=== PATIENT | female | born 1975 | race Caucasian/White ===

== ENCOUNTER 2018-06-30 20:02 | Inpatient (IN) | payer SELFPAY ==
[~2018-06-30] VITALS: Ht 162.6 cm; Wt 94.4 kg
--- NOTE | 2018-06-30 20:13 | NUR ---
PT BIB [facility] FROM [facility], C/O POSS FOREIGN BODY STUCK IN THROAT, PT AAOX4, RESPIRATIONS EVEN AND UNLABORED, NO SOB, NAD NOTED, VSS, PT ON MONITOR. PENDING ER PROVIDER MONIQUE
--- NOTE | 2018-06-30 20:56 | NUR ---
GI market intelligence consultant - Nichelle MARROQUIN - paged
[2018-06-30] MEDS ORDERED: ONDANSETRON HCL/PF 4 MG/2 ML VIAL ONE (21:15)
--- NOTE | 2018-06-30 21:18 | NUR ---
[facility] call center recruiter -paged for admission
[2018-06-30] MEDS ORDERED: GLUCAGON,HUMAN RECOMBINANT 1 MG/VIAL VIAL IV ONE (21:30)
[2018-06-30] MEDS ORDERED: ONDANSETRON HCL/PF 4 MG/2 ML VIAL IVP ONE (21:30)
[2018-06-30] MEDS ORDERED: GLUCAGON,HUMAN RECOMBINANT 1 MG/VIAL VIAL ONE (21:35)
[2018-06-30 21:36] LABS: BASOPHILS # (AUTO) 0.1 /CMM (0.0-0.2); BASOPHILS % (AUTO) 0.4 % (0.0-2.0); EOSINOPHILS % (AUTO) 4.2 % (0.0-6.0); HEMATOCRIT 36 % (33-45); HEMOGLOBIN 11.6 g/dL (11.5-14.8); LYMPHOCYTES # (AUTO) 2.6 /CMM (0.8-4.8); LYMPHOCYTES % (AUTO) 19.9 % (20.0-44.0); MEAN CORPUSCULAR HGB CONC 32 g/dl (31.0-36.0); MEAN CORPUSCULAR VOLUME 83 fL (82-100); MONOCYTES # (AUTO) 0.7 /CMM (0.1-1.30); MONOCYTES % (AUTO) 5.3 % (2.0-12.0); NEUTROPHILS # (AUTO) 9.3 /CMM (1.8-8.9); NEUTROPHILS % (AUTO) 70.2 % (43.0-81.0); PLATELET COUNT (AUTO) 432 /CMM (150-450); RED BLOOD CELL COUNT(AUTO) 4.31 MIL/uL (4.0-5.2); WHITE BLOOD COUNT (AUTO) 13.3 K/uL (4.3-11.0)
[2018-06-30] MEDS ORDERED: WATER FOR INJECTION,STERILE 10 ML ONE (21:38)
[2018-06-30 21:44] LABS: CALCIUM, SERUM 8.5 mg/dL (8.5-10.1); POTASSIUM 4.1 mmol/L (3.5-5.1)
--- NOTE | 2018-06-30 21:44 | NUR ---
TELE #: [id number], Dx: FOREIGN BODY IN UPPER GI, AND ACCEPTING: RENAN NASH NP[
--- NOTE | 2018-06-30 21:55 | NUR ---
report given to the floor nurse; continue plan of care
[2018-06-30] MEDS ORDERED: LORAZEPAM INJ 2 MG/ML VIAL IV ONE (22:00)
[2018-06-30] MEDS ORDERED: IV NS 0.9% 1,000 ML IV PRN (22:06)
[2018-06-30] MEDS ORDERED: MAGNESIUM HYDROXIDE 30 ML UDC PO PRN (22:30)
[2018-06-30] MEDS ORDERED: ONDANSETRON HCL/PF 4 MG/2 ML VIAL IVP PRN (22:30)
[2018-06-30] MEDS ORDERED: ACETAMINOPHEN 325 MG TABLET PO PRN (22:30)
[2018-06-30] MEDS ORDERED: MAG HYDROX/AL HYDROX/SIMETH 30 ML UDC PO PRN (22:30)
[2018-06-30] MEDS ORDERED: HYDROCODONE/APAP 5/325MG 1 EACH TABLET PO PRN (22:30)
[2018-06-30] MEDS ORDERED: Z GUARD REMEDY 2 OZ OINT TP PRN (22:30)
--- NOTE | 2018-06-30 22:30 | NUR ---
RECEIVED PATIENT IN STABLE CONDITION. NO C/O PAIN OR DISCOMFORT. PERIPHERAL IV INTACT AND PATENT. PATIENT PLACED ON NPO STATUS D/T DIFFICULTY SWALLOWING AND SCHEDULE EDG IN AM. ALL CONSENTS SIGNED. BED IN LOW LOCK SETTINGS. ALL BELONGINGS AND CALL LIGHT WITHIN REACH. WILL CONTINUE TO MONITOR.
[2018-07-01] VITALS (11 sets, daily range): BP systolic 97–136; BP diastolic 59–85
[2018-07-01] MEDS ORDERED: LORAZEPAM INJ 2 MG/ML VIAL IV ONE (00:30)
--- NOTE | 2018-07-01 06:14 | NUR ---
RN KALI CLOSING NOTES PATIENT ASLEEP IN BED WITH NO DISTRESS NOTED. CALL LIGHT WITHIN REACH. PERIPHERAL IV INTACT AND PATENT. NPO STATUS OBSERVED AND MAINTAINED AT ALL TIMES. NO C/O PAIN OR DISCOMFORT. BED IN LOW LOCK SETTINGS. ALL BELONGINGS AND CALL LIGHT WITHIN REACH. WILL ENDORSE TO ONCOMING SHIFT.
[2018-07-01 06:28] LABS: BASOPHILS % (AUTO) 0.4 % (0.0-2.0); EOSINOPHILS % (AUTO) 4.7 % (0.0-6.0); HEMATOCRIT 34 % (33-45); LYMPHOCYTES # (AUTO) 2.7 /CMM (0.8-4.8); LYMPHOCYTES % (AUTO) 26.8 % (20.0-44.0); MEAN CORPUSCULAR HGB CONC 32 g/dl (31.0-36.0); MEAN CORPUSCULAR VOLUME 83 fL (82-100); MONOCYTES # (AUTO) 0.7 /CMM (0.1-1.30); MONOCYTES % (AUTO) 6.5 % (2.0-12.0); NEUTROPHILS # (AUTO) 6.3 /CMM (1.8-8.9); NEUTROPHILS % (AUTO) 61.6 % (43.0-81.0); PLATELET COUNT (AUTO) 396 /CMM (150-450); RED BLOOD CELL COUNT(AUTO) 4.09 MIL/uL (4.0-5.2); WHITE BLOOD COUNT (AUTO) 10.2 K/uL (4.3-11.0)
[2018-07-01 06:51] LABS: THYROID STIMULATING HORMONE 3.05 uIU/mL (0.358-3.74)
[2018-07-01 06:53] LABS: CALCIUM, SERUM 8.1 mg/dL (8.5-10.1); CREATININE 0.9 mg/dL (0.6-1.3); MAGNESIUM 2.1 mg/dL (1.8-2.4); PHOSPHORUS 2.8 mg/dL (2.5-4.9); POTASSIUM 3.8 mmol/L (3.5-5.1)
[2018-07-01 06:58] LABS: APPEARANCE,URINE CLEAR (CLEAR); BILIRUBIN,URINE NEGATIVE (NEGATIVE); BLOOD, URINE NEGATIVE Ery/uL (NEGATIVE); COLOR,URINE YELLOW (YELLOW); KETONES,URINE NEGATIVE (NEGATIVE); LEUKOCYTE ESTERASE ,URINE NEGATIVE (NEGATIVE); NITRITE, URINE NEGATIVE (NEGATIVE); PROTEIN,URINE NEGATIVE (NEGATIVE); UGLUCOSE NEGATIVE (NEGATIVE); UROBILINOGEN,URINE 0.2 EU/dL (0.2)
--- NOTE | 2018-07-01 08:02 | NUR ---
LINE ANALYST NOTES PATIENT IN BED RESTING NO SOB OR ACUTE DISTRESS NOTED. PATIENT ALERT, ORIENTED X3 DENIES ANY PAIN. PERIPHERAL IV INTACT PATENT. BED IN LOW LOCKED POSITION. CALL LIGHT WITHIN REACH. WILL CONTINUE TO MONITOR.
--- NOTE | 2018-07-01 09:30 | NUR ---
MS RN NOTES PATIENT TRANSFERRED TO OR FOR SCHEDULED EGD IS STABLE CONDITION.
[2018-07-01] MEDS ORDERED: MIDAZOLAM HCL 2 MG/2ML VIAL ONE (10:40)
--- NOTE | 2018-07-01 14:50 | NUR ---
MS RN NOTES PATIENT DISCHARGED HOME IN STABLE CONDITION. PATIENT ALERT, ORIENTED X3 DENIES ANY PAIN OR DISCOMFORT. DISCHARGE TEACHING PROVIDED VERBALIZED UNDERSTANDING. ALL BELONGINGS ACCOUNTED FOR, BELONGING LIST SIGNED. PATIENT CLEARED BY GI DR. PRUITT AND BY DR. WHITLEY. PATIENT TOLERATED DIET WELL. REQUESTED TO BE DISCHARGED SOON POSSIBLE. PATIENT DISCHARGED HOME PER REQUEST.
== END 2018-07-01 14:45 | disposition home or self-care (01) | DRG 395 ==
LOC: ER 20:08 → TELE 21:53 → MED 07-01 10:58
PROVIDERS: ADMIT Nurse Practitioner Acute Care; ATTEND Family Medicine
PROC: 0D758ZZ Dilation of Esophagus, Via Natural or Artificial Opening Endoscopic (ICD-10-PCS; principal; 2018-07-01)
PROC: 0DC58ZZ Extirpation of Matter from Esophagus, Via Natural or Artificial Opening Endoscopic (ICD-10-PCS; principal; 2018-07-01)
DX: T18.128A Food in esophagus causing other injury, initial encounter (principal); X58.XXXA Exposure to other specified factors, initial encounter; Y92.009 Unspecified place in unspecified non-institutional (private) residence as the place of occurrence of the external cause; Z68.35 Body mass index [BMI] 35.0-35.9, adult; E66.9 Obesity, unspecified; F41.9 Anxiety disorder, unspecified; D72.829 Elevated white blood cell count, unspecified; Z83.3 Family history of diabetes mellitus; K20.0 Eosinophilic esophagitis; Z72.0 Tobacco use
CPT/HCPCS: 36415; 71045-TC; 80048-TC; 80061-TC; 81000-TC; 82962-TC; 83735-TC; 84100-TC; 84443-TC; 84702-TC; 85025-TC; 85730-TC; 86850-TC; 87081-TC; A4570; G0378; J0330; J1610; J2060; J2250; J2405; J2704; J3490; J7030